=== PATIENT | female | born 1950 | race Caucasian/White ===

== ENCOUNTER 2019-06-15 12:40 | Outpatient (CLI) | payer OTHER, SELFPAY ==
[2019-06-15 13:58] LABS: Basophils # 0.1 10^3/uL (0.0-0.1); Basophils % 1.1 %; Eosinophils # 0.1 10^3/uL (0.0-0.8); Eosinophils % 1.1 %; Hematocrit 47.1 % (37.0-47.0); Hemoglobin 15.5 g/dL (11.5-15.3); Lymphocytes # 1.4 10^3/uL (0.8-4.8); Lymphocytes % 23.9 %; Mean Corpuscular HGB Conc 32.9 g/dL (30.0-36.0); Mean Corpuscular Hemoglobin 32.2 pg (28.0-34.0); Mean Corpuscular Volume 97.9 fL (81-99); Mean Platelet Volume 9.1 fL (7.4-10.4); Monocytes # 0.6 10^3/uL (0.2-0.9); Monocytes % 11.3 %; Neutrophils # 3.5 10^3/uL (1.8-7.7); Neutrophils % 62.4 %; Nucleated Red Blood Cells % 0 %; Platelet Count 336 10^3/cmm (130-400); Red Blood Count 4.81 10^6/uL (4.1-5.3); Red Cell Distribution Width 13.8 % (12.1-15.1); White Blood Count 5.7 10^3/uL (4.0-10.0)
[2019-06-15 14:08] LABS: Alanine Aminotransferase 36 U/L (0-33); Albumin Level 4.4 g/dL (3.5-5.2); Alkaline Phosphatase 72 IU/L (35-105); Anion Gap 15.8 (5-19); Aspartate Amino Transferase 29 U/L (0-32); Blood Urea Nitrogen 16 mg/dL (8-23); Calcium 10.8 mg/Dl (8.8-10.2); Carbon Dioxide 27 mmol/L (22-29); Chloride 100 mmol/L (98-107); Globulin 3.4 g/dL (1.3-4.6); Glomerular Filtration Rate 71.8 mL/min (90-130); Glucose 118 mg/dL (74-106); Potassium 3.8 mmol/L (3.5-5.1); Sodium 139 mmol/L (136-145); Total Bilirubin 0.4 mg/dL (0.15-1.2); Total Protein 7.8 g/dL (6.6-8.7)
== END 2019-06-15 12:41 | disposition home or self-care (01) ==
PROVIDERS: PCP Family Medicine; Visit Provider Internal Medicine Hematology & Oncology
DX: C50.311 Malignant neoplasm of lower-inner quadrant of right female breast (principal)
CPT/HCPCS: 80053; 85025

== ENCOUNTER 2019-06-19 14:34 | Outpatient (CLI) | payer OTHER, SELFPAY ==
--- NOTE | 2019-06-20 15:49 | ONC FU_ITS ---
Dr. Garza follow up note Patient: Petty Ramon Unit #: [id number]: 1950 Dicatated By: Rony Garza M.D.Date of Visit:Jun 19, 2019 Onc Med Follow-up/Prog Note History of Present Illness: Mrs. Petty Ramon is a 68-year-old female who recently underwent screening mammogram on 06/28/2018 which showed nodular density in the posterior medial inferior right breast about 11 cm from nipple. Confirmed by right breast ultrasonogram done on 07/06/2018. Subsequently underwent ultrasound-guided biopsy of right breast mass on 07/15/2018 which confirmed infiltrating carcinoma grade 2 ER/ID positive HER-2/abel negative. Patient was referred to surgery who performed wide excision of right breast with sentinel lymph node biopsy on 08/01/2018 and final pathology report showed 0.9 cm invasive carcinoma 0 out of 12 lymph nodes positive for metastatic disease. Patient tolerated procedure well Oncotype DX score was 8 which is low and distant recurrence of this 9 years with aromatase inhibitor is 3% She started on Arimidex 1 mg by mouth daily for 5 years on 08/16/2018. s/p postlumpectomy radiation therapy Completed on 09/28/2018. . She called in after having problems with the anastrozole. She had persistent queasiness, shortness of breath, fatigue and joint pain. She was having hot flashes intermittently as well but states that those are really not new and not unbearable. She did stop the anastrozole and states that she feels much better off of it.She was given prescription for Aromasin which she took it for a few days and then stopped taking it and then switched back to Arimidex and now tolerating well with mild nausea and generalized weakness and fatigue but no shortness of breath but occasional hot flashes Came for follow-up denies any specific complaintsno vomiting no fever or chills no diarrhea constipation but occasionally hot flashes and mild nausea but under control with supportive care. Tolerating Arimidex well now Medications: Citracal Plus Tablet Oral daily, Losartan Potassium-HCTZ 1 Tablet (of 50-12.5 mg) Oral daily Allergies: Latex Exam Gloves Review of Systems: Constitutional - Appetite is good and weight is stable. No fever, chills, or night sweats. Occasional hot flashes. Energy level is fair, ENMT - No sinus congestion/drainage. No mouth sores. No sore throat or difficulty swallowing, Hematologic/Lymphatic - No abnormal bruising or bleeding, Respiratory - No shortness of breath. No cough. No pleuritic pain or hemoptysis, Cardiovascular - No angina pain. No palpitations, Gastrointestinal - Positive for nausea, no vomiting. No heartburn or acid reflux. No diarrhea or constipation. No blood in the stool or black stools, Genitourinary (F) - No dysuria or hematuria. No urinary frequency. No urgency or incontinence, Musculoskeletal - Positive for generalized joint pain, Neurologic - No headache or dizziness. No numbness/paresthesias or other focal neurologic symptoms, Psychiatric - No anxiety or depression. Positive for insomnia. Vital Signs: Performed on Jun 19, 2019 15:20 Height - 56.00 in Weight - 250 lbs (LOW) BSA - 1.95 sq.m BMI - 56.05 (HIGH) Temperature - 98.2 F (LOW) Pulse - 73 /min Respiration - 20 /min BP - 153/85 mm(hg) (HIGH) O2 Sat - 98 % Pain - 3 Performance Status: 1 - No physically strenuous activity, but ambulatory and able to carry out light or sedentary work (e.g. office work, light house work). (ECOG) Physical Examination: Respiratory - Lungs are clear to auscultation without rhonchi or wheezing, Cardiovascular - Regular rate and rhythm of heart, Extremities - no edema. Lab/Imaging: Test performed on Jun 15, 2019 13:00 Glucose 118 mg/dL BUN 16 mg/dL Creatinine 0.8 mg/dL Cr Clearance (Est) 123.8300 mL/min Sodium 139 mmol/L Potassium 3.8 mmol/L Chloride 100 mmol/L CO2 27 mmol/L Calcium 10.8 mg/dL Protein, Total 7.8 g/dL Albumin 4.4 g/dL Globulin 3.4 g/dL Bilirubin, Total 0.4 mg/dL Alkaline Phosphatase 72 IU/L AST (SGOT) 29 IU/L ALT (SGPT) 36 IU/L WBC 5.7 10^9/L RBC 4.81 10^12/L HGB 15.5 g/dL HCT 47.1 % MCV 97.9 fl MCH 32.2 pg MCHC 32.9 g/dL RDW 13.8 % Platelet Count 336 10^9/L MPV 9.1 fL Neutrophils (Gran) 3.5 10^9/L Lymphocytes 1.4 10^9/L Monocytes 0.6 10^9/L Eosinophils 0.1 10^9/L Basophils 0.1 10^9/L Neutrophil % 1.1 % Manual Lymphocytes 23.9 % Manual Monocytes 11.3 % Manual Eosinophils 1.1 % Manual Basophils 1.1 % NRBCs 0.0 /100 WBC Test performed on May 22, 2019 08:00 Cholesterol, Total 177 mg/dL HDL Cholesterol 38 mg/dL LDL Cholesterol 117 mg/dL Triglycerides 111 mg/dL Impression: Infiltrating ductal carcinoma of right breast status post excisional biopsy with sentinel lymph node biopsy done on 08/01/2018 Final pathology report showed 0.9 cm and there was a mass p T1 0 out of 12 right axillary lymph node showed metastatic disease N0 Stage p1 a ER 90% positive, ID 50% positive, HER-2/abel negative Oncotype DX score checked on 08/26/2018 was 8 e.g. low risk, distant recurrence risk at 9 years with aromatase inhibitor is 3% Started on Arimidex 1 mg by mouth daily for 5 years on 08/16/2018. She developed intolerance to the Arimidex in that she was having queasiness, joint pain and significant fatigue. It was held on 12/06/2018. s/p postlumpectomy radiation therapy Completed on 09/28/2018 Plan: Discussed with patient regarding her labs white blood count 5.7 hemoglobin 15.5 crit 47.1 platelets 336,000 CMP within normal limits Clinically, patient is doing well, tolerating Arimidex well but with expected side effects e.g. degenerative weakness and fatigue, occasionally hot flashes or muscle skeleton discomfort. And mild nausea but patient was offered another hormonal agent but patient declined rather wants to continue with Arimidex. And return to clinic in 6 month with CBC CMP. Signed By: Rony Garza M.D. <<Signature on File>>
== END 2019-06-19 14:35 | disposition home or self-care (01) ==
LOC: ONCMED 14:38
PROVIDERS: PCP Family Medicine; Visit Provider Internal Medicine Hematology & Oncology
DX: C50.311 Malignant neoplasm of lower-inner quadrant of right female breast (principal); Z17.0 Estrogen receptor positive status [ER+]; Z79.811 Long term (current) use of aromatase inhibitors; Z92.3 Personal history of irradiation
CPT/HCPCS: 99214

== ENCOUNTER 2019-08-04 11:00 | Outpatient (CLI) | payer OTHER, SELFPAY ==
--- NOTE | 2019-08-04 11:03 | MM_ITS ---
WS: [id number] BILATERAL SCREENING DIGITAL MAMMOGRAM WITH CAD HISTORY: HX OF BREAST CA COMPARISON: 08/01/2018, 07/15/2018, 06/28/2018 Bilateral CC and MLO views submitted. Computer aided detection analyzed. Breast composition: There are scattered areas of fibroglandular density. No suspicious masses, microc alcifications or architectural distortion. Prior lumpectomy and radiation RIGHT breast. Very mild inc reased trabecular thickening over the RIGHT breast as compared to the prior studies. MM/[id number] IMPRESSION: BI-RADS: 2-Benign FOLLOW UP: 1 Year Follow-up
== END 2019-08-04 11:01 | disposition home or self-care (01) ==
LOC: ONCMED 11:00
PROVIDERS: PCP Family Medicine; Visit Provider Internal Medicine Hematology & Oncology
DX: Z85.3 Personal history of malignant neoplasm of breast (principal); Z92.3 Personal history of irradiation; Z98.890 Other specified postprocedural states
CPT/HCPCS: 77066

== ENCOUNTER 2019-12-14 13:21 | Outpatient (CLI) | payer OTHER, SELFPAY ==
[2019-12-14 14:44] LABS: Alanine Aminotransferase 34 U/L (0-33); Albumin Level 4.2 g/dL (3.5-5.2); Alkaline Phosphatase 60 IU/L (35-105); Anion Gap 15.9 (5-19); Aspartate Amino Transferase 28 U/L (0-32); Blood Urea Nitrogen 13 mg/dL (8-23); Calcium 10.5 mg/dL (8.5-10.5); Carbon Dioxide 28 mmol/L (22-29); Chloride 100 mmol/L (98-107); Globulin 3.5 g/dL (1.3-4.6); Glomerular Filtration Rate 71.5 mL/min (90-130); Glucose 95 mg/dL (65-115); Osmolality Calculated 286 mOsm/kg (285-295); Potassium 3.9 mmol/L (3.5-5.1); Sodium 140 mmol/L (136-145); Total Bilirubin 0.5 mg/dL (0.15-1.2); Total Protein 7.7 g/dL (6.6-8.7)
== END 2019-12-14 13:22 | disposition home or self-care (01) ==
LOC: ONCMED 13:24
PROVIDERS: PCP Family Medicine; Visit Provider Internal Medicine Hematology & Oncology
DX: C50.311 Malignant neoplasm of lower-inner quadrant of right female breast (principal); Z17.0 Estrogen receptor positive status [ER+]; I10 Essential (primary) hypertension
CPT/HCPCS: 36415; 80053

== ENCOUNTER 2019-12-18 14:40 | Outpatient (CLI) | payer OTHER, SELFPAY ==
--- NOTE | 2019-12-18 15:44 | ONC FU_ITS ---
Dr. Garza follow up note Patient: Petty Ramon Unit #: [id number]: 1950 Dicatated By: Rony Garza M.D.Date of Visit:Dec 18, 2019 Onc Med Follow-up/Prog Note History of Present Illness: Mrs. Petty Ramon is a 69-year-old female who underwent screening mammogram on 06/28/2018 which showed nodular density in the posterior medial inferior right breast about 11 cm from nipple. Confirmed by right breast ultrasonogram done on 07/06/2018. Subsequently underwent ultrasound-guided biopsy of right breast mass on 07/15/2018 which confirmed infiltrating carcinoma grade 2 ER/CO positive HER-2/abel negative. Patient was referred to surgery who performed wide excision of right breast with sentinel lymph node biopsy on 08/01/2018 and final pathology report showed 0.9 cm invasive carcinoma 0 out of 12 lymph nodes positive for metastatic disease. Patient tolerated procedure well Oncotype DX score was 8 which is low and distant recurrence of this 9 years with aromatase inhibitor is 3% She started on Arimidex 1 mg by mouth daily for 5 years on 08/16/2018. s/p postlumpectomy radiation therapy Completed on 09/28/2018. . She called in after having problems with the anastrozole. She had persistent queasiness, shortness of breath, fatigue and joint pain. She was having hot flashes intermittently as well but states that those are really not new and not unbearable. She did stop the anastrozole and states that she feels much better off of it.She was given prescription for Aromasin which she took it for a few days and then stopped taking it and then switched back to Arimidex and now tolerating well with mild nausea and generalized weakness and fatigue but no shortness of breath but occasional hot flashes Came for follow-up, complaining of persistent nausea and now with progressive arthritislike pain and muscle discomfort, patient has history of chronic arthritis involving hand joints and shoulders, now take ibuprofen for relief. Occasional hot flashes otherwise tolerating Arimidex/vitamin D/calcium well Medications: Arimidex 1 Tablet (of 1 mg) Oral daily, Citracal Plus Tablet Oral daily, Glucosamine 2 Tablet (of 750 mg) Oral daily, Losartan Potassium-HCTZ 1 Tablet (of 50-12.5 mg) Oral daily Allergies: Latex Exam Gloves Review of Systems: Constitutional - Appetite is good and weight is stable. No fever, chills, or night sweats. Occasional hot flashes. Energy level is fair, ENMT - No sinus congestion/drainage. No mouth sores. No sore throat or difficulty swallowing, Hematologic/Lymphatic - No abnormal bruising or bleeding, Respiratory - No shortness of breath. No cough. No pleuritic pain or hemoptysis, Cardiovascular - No angina pain. No palpitations, Gastrointestinal - Positive for nausea, no vomiting. No heartburn or acid reflux. No diarrhea or constipation. No blood in the stool or black stools, Genitourinary (F) - No dysuria or hematuria. No urinary frequency. No urgency or incontinence, Musculoskeletal - Positive for generalized joint pain, Neurologic - No headache or dizziness. No numbness/paresthesias or other focal neurologic symptoms, Psychiatric - No anxiety or depression. Positive for insomnia. Vital Signs: Performed on Dec 18, 2019 15:11 Height - 56.00 in Weight - 247.2 lbs (LOW) BSA - 1.94 sq.m BMI - 55.42 (HIGH) Temperature - 98.3 F (LOW) Pulse - 84 /min Respiration - 24 /min BP - 134/80 mm(hg) O2 Sat - 99 % Pain - 0 Performance Status: 0 - Fully active, able to carry on all predisease activities without restrictions. (ECOG) Physical Examination: Respiratory - Lungs are clear, Cardiovascular - Regular rate and rhythm of heart, Gastrointestinal - Soft, bowel sounds present, Extremities - No visible edema. Lab/Imaging: Most recent lab results are not available for this patient. Impression: Infiltrating ductal carcinoma of right breast status post excisional biopsy with sentinel lymph node biopsy done on 08/01/2018 Final pathology report showed 0.9 cm and there was a mass p T1 0 out of 12 right axillary lymph node showed metastatic disease N0 Stage p1 a ER 90% positive, CO 50% positive, HER-2/abel negative Oncotype DX score checked on 08/26/2018 was 8 e.g. low risk, distant recurrence risk at 9 years with aromatase inhibitor is 3% Started on Arimidex 1 mg by mouth daily for 5 years on 08/16/2018. She developed intolerance to the Arimidex in that she was having queasiness, joint pain and significant fatigue. It was held on 12/06/2018. s/p postlumpectomy radiation therapy Completed on 09/28/2018 Plan: discussed with patient regarding her labs CMP within normal limits Clinically no signs symptom suggestive of recurrence of disease, tolerating Arimidex/vitamin D/calcium well but now with expected side effects e.g. progressive musculoskeletal discomfort and nausea is a concern, at this point, patient was advised to hold Arimidex/vitamin D and calcium for 1 month to see if there is improvement in her symptoms especially nausea and progressive musculoskeletal/joint pains, if there is improvement then will consider switching her to Aromasin. Patient return to clinic in 1 month with CBC CMP Her previous CBC shows mildly elevated hemoglobin/hematocrit, could be secondary polycythemia, patient may have underlying sleep apnea but patient declines although wake up many times at night.Discussed about sleep study, to rule out sleep apnea, patient wants to think about it Signed By: Rony Garza M.D. <<Signature on File>>
== END 2019-12-18 14:41 | disposition home or self-care (01) ==
LOC: ONCMED 14:43
PROVIDERS: PCP Family Medicine; Visit Provider Internal Medicine Hematology & Oncology
DX: C50.911 Malignant neoplasm of unspecified site of right female breast (principal); Z17.0 Estrogen receptor positive status [ER+]; M19.042 Primary osteoarthritis, left hand; M19.041 Primary osteoarthritis, right hand; M19.012 Primary osteoarthritis, left shoulder; M19.011 Primary osteoarthritis, right shoulder; Z79.811 Long term (current) use of aromatase inhibitors; Z92.3 Personal history of irradiation
CPT/HCPCS: 99214

== ENCOUNTER 2020-01-18 13:02 | Outpatient (CLI) | payer MEDICARE, SELFPAY ==
[2020-01-18 13:33] LABS: Basophils # 0.1 10^3/uL (0.0-0.1); Basophils % 0.8 %; Eosinophils # 0.1 10^3/uL (0.0-0.8); Eosinophils % 2.2 %; Hematocrit 47.2 % (37.0-47.0); Hemoglobin 15.1 g/dL (11.5-15.3); Lymphocytes # 1.7 10^3/uL (0.8-4.8); Lymphocytes % 27.5 %; Mean Corpuscular Hemoglobin 32.3 pg (28.0-34.0); Mean Corpuscular Volume 101.1 fL (81-99); Mean Platelet Volume 9.3 fL (7.4-10.4); Monocytes # 0.7 10^3/uL (0.2-0.9); Monocytes % 11.9 %; Neutrophils # 3.47 10^3/uL (1.8-7.7); Neutrophils % 57.4 %; Nucleated Red Blood Cells % 0 %; Platelet Count 302 10^3/cmm (130-400); Red Blood Count 4.67 10^6/uL (4.1-5.3); Red Cell Distribution Width 13.7 % (12.1-15.1)
[2020-01-18 14:01] LABS: Alanine Aminotransferase 32 U/L (0-33); Albumin Level 3.9 g/dL (3.5-5.2); Alkaline Phosphatase 65 IU/L (35-105); Aspartate Amino Transferase 28 U/L (0-32); Blood Urea Nitrogen 16 mg/dL (8-23); Calcium 9.2 mg/dL (8.5-10.5); Carbon Dioxide 23 mmol/L (22-29); Chloride 104 mmol/L (98-107); Globulin 3.6 g/dL (1.3-4.6); Glomerular Filtration Rate 83.5 mL/min (90-130); Glucose 104 mg/dL (65-115); Osmolality Calculated 281 mOsm/kg (285-295); Sodium 137 mmol/L (136-145); Total Bilirubin 0.4 mg/dL (0.15-1.2); Total Protein 7.5 g/dL (6.6-8.7)
== END 2020-01-18 13:03 | disposition home or self-care (01) ==
LOC: ONCMED 13:04
PROVIDERS: PCP Family Medicine; Visit Provider Internal Medicine Hematology & Oncology
DX: C50.311 Malignant neoplasm of lower-inner quadrant of right female breast (principal); Z17.0 Estrogen receptor positive status [ER+]
CPT/HCPCS: 36415; 80053; 85025

== ENCOUNTER 2020-01-22 06:12 | Outpatient (CLI) | payer MEDICARE, SELFPAY ==
--- NOTE | 2020-01-23 17:55 | ONC FU_ITS ---
Dr. Garza follow up note Patient: Petty Ramon Unit #: [id number]: 1950 Dicatated By: Rony Garza M.D.Date of Visit:Jan 22, 2020 Onc Med Follow-up/Prog Note History of Present Illness: Mrs. Petty Ramon is a 69-year-old female who underwent screening mammogram on 06/28/2018 which showed nodular density in the posterior medial inferior right breast about 11 cm from nipple. Confirmed by right breast ultrasonogram done on 07/06/2018. Subsequently underwent ultrasound-guided biopsy of right breast mass on 07/15/2018 which confirmed infiltrating carcinoma grade 2 ER/ND positive HER-2/abel negative. Patient was referred to surgery who performed wide excision of right breast with sentinel lymph node biopsy on 08/01/2018 and final pathology report showed 0.9 cm invasive carcinoma 0 out of 12 lymph nodes positive for metastatic disease. Patient tolerated procedure well Oncotype DX score was 8 which is low and distant recurrence of this 9 years with aromatase inhibitor is 3% She started on Arimidex 1 mg by mouth daily for 5 years on 08/16/2018. s/p postlumpectomy radiation therapy Completed on 09/28/2018. . She called in after having problems with the anastrozole. She had persistent queasiness, shortness of breath, fatigue and joint pain. She was having hot flashes intermittently as well but states that those are really not new and not unbearable. She did stop the anastrozole and states that she feels much better off of it.She was given prescription for Aromasin which she took it for a few days and then stopped taking it and then switched back to Arimidex and now tolerating well with mild nausea and generalized weakness and fatigue but no shortness of breath but occasional hot flashes, Again because of progressive musculoskeletal discomfort and nausea, her Arimidex was put on hold for a month on December 18, 2019 for 1 month, Came for follow-up, denies any specific complaint except persistent musculoskeletal discomfort, not much improvement since she is off Arimidex since last month. But nausea has improved, think calcium was causing it, with stopping calcium supplement, her nausea improved. But no fever chills, no nausea or vomiting, no diarrhea or constipation. Patient wants to start Arimidex again.But without calcium supplement Medications: Citracal Plus Tablet Oral daily, Glucosamine 2 Tablet (of 750 mg) Oral daily, Losartan Potassium-HCTZ 1 Tablet (of 50-12.5 mg) Oral daily Allergies: Latex Exam Gloves Review of Systems: Constitutional - Appetite is good and weight is stable. No fever, chills, or night sweats. Occasional hot flashes. Energy level is fair, ENMT - No sinus congestion/drainage. No mouth sores. No sore throat or difficulty swallowing, Hematologic/Lymphatic - No abnormal bruising or bleeding, Respiratory - No shortness of breath. No cough. No pleuritic pain or hemoptysis, Cardiovascular - No angina pain. No palpitations, Gastrointestinal - Positive for nausea, no vomiting. No heartburn or acid reflux. No diarrhea or constipation. No blood in the stool or black stools, Genitourinary (F) - No dysuria or hematuria. No urinary frequency. No urgency or incontinence, Musculoskeletal - Positive for generalized joint pain, Neurologic - No headache or dizziness. No numbness/paresthesias or other focal neurologic symptoms, Psychiatric - No anxiety or depression. Positive for insomnia. Vital Signs: Performed on Jan 22, 2020 15:35 Height - 56.00 in Weight - 249.8 lbs (HIGH) BSA - 1.95 sq.m BMI - 56.00 (HIGH) Temperature - 98.8 F Pulse - 97 /min Respiration - 24 /min BP - 141/63 mm(hg) (HIGH) O2 Sat - 98 % Pain - 4 Performance Status: 0 - Fully active, able to carry on all predisease activities without restrictions. (ECOG) Physical Examination: Respiratory - Lungs are clear, Cardiovascular - Regular rate and rhythm of heart, Gastrointestinal - Soft, bowel sounds present, Extremities - No visible edema or rash. Lab/Imaging: Test performed on Dec 14, 2019 13:28 Sodium 140 mmol/L Potassium 3.9 mmol/L Chloride 100 mmol/L CO2 28 mmol/L Anion Gap 15.9 BUN 13 mg/dL Creatinine 0.8 mg/dL Cr Clearance (Est) 120.79 mL/min eGFR 71.5 mL/min Glucose 95 mg/dL Calcium 10.5 mg/dL Protein, Total 7.7 g/dL Albumin 4.2 g/dL Globulin 3.5 g/dL Bilirubin, Total 0.5 mg/dL ALT (SGPT) 34 U/L AST (SGOT) 28 U/L Alkaline Phosphatase 60 IU/L Impression: Infiltrating ductal carcinoma of right breast status post excisional biopsy with sentinel lymph node biopsy done on 08/01/2018 Final pathology report showed 0.9 cm and there was a mass p T1 0 out of 12 right axillary lymph node showed metastatic disease N0 Stage p1 a ER 90% positive, ND 50% positive, HER-2/abel negative Oncotype DX score checked on 08/26/2018 was 8 e.g. low risk, distant recurrence risk at 9 years with aromatase inhibitor is 3% Started on Arimidex 1 mg by mouth daily for 5 years on 08/16/2018. She developed intolerance to the Arimidex in that she was having queasiness, joint pain and significant fatigue. It was held on 12/06/2018. s/p postlumpectomy radiation therapy Completed on 09/28/2018 Plan: Discussed with patient regarding her labs white blood count 6 hemoglobin 15.1 crit 47.2 platelets 302,000 CMP within normal limits Clinically, patient is doing well, no signs symptom suggestive of recurrence of disease, still has persistent mild/moderate musculoskeletal discomfort which is a chronic problem for her, earlier she thought Arimidex was making it worse, she was switched to Aromasin and she did not see any improvement and decided to go back on Arimidex but then on December 18, 2019, she was complaining of worsening of musculoskeletal discomfort so Arimidex was put on hold again for month, now came back today and said did not see much improvement, wants to go back on Arimidex again as now her musculoskeletal discomfort is tolerable. But does not want a calcium supplement as, she thinks it was causing nausea. Patient will start taking the Arimidex today and return to clinic in 3 months for follow-up. And she was advised in case there is a worsening of her musculoskeletal symptoms, she need to call us and then we will discuss about trying another hormonal therapy agent. Signed By: Rony Garza M.D. <<Signature on File>>
== END 2020-01-22 06:13 | disposition home or self-care (01) ==
PROVIDERS: PCP Family Medicine; Visit Provider Internal Medicine Hematology & Oncology
DX: C50.311 Malignant neoplasm of lower-inner quadrant of right female breast (principal); Z17.0 Estrogen receptor positive status [ER+]; Z79.818 Long term (current) use of other agents affecting estrogen receptors and estrogen levels
CPT/HCPCS: 99214

== ENCOUNTER 2020-04-23 15:01 | Outpatient (CLI) | payer MEDICARE, SELFPAY ==
--- NOTE | 2020-05-10 09:45 | ONC FU_ITS ---
Dr. Garza follow up note Patient: Petty Ramon Unit #: [id number]: 1950 Dicatated By: Rony Garza M.D.Date of Visit:Apr 23, 2020 Onc Med Follow-up/Prog Note History of Present Illness: Mrs. Petty Ramon is a 69-year-old female who underwent screening mammogram on 06/28/2018 which showed nodular density in the posterior medial inferior right breast about 11 cm from nipple. Confirmed by right breast ultrasonogram done on 07/06/2018. Subsequently underwent ultrasound-guided biopsy of right breast mass on 07/15/2018 which confirmed infiltrating carcinoma grade 2 ER/MS positive HER-2/abel negative. Patient was referred to surgery who performed wide excision of right breast with sentinel lymph node biopsy on 08/01/2018 and final pathology report showed 0.9 cm invasive carcinoma 0 out of 12 lymph nodes positive for metastatic disease. Patient tolerated procedure well Oncotype DX score was 8 which is low and distant recurrence of this 9 years with aromatase inhibitor is 3% She started on Arimidex 1 mg by mouth daily for 5 years on 08/16/2018. s/p postlumpectomy radiation therapy Completed on 09/28/2018. . She called in after having problems with the anastrozole. She had persistent queasiness, shortness of breath, fatigue and joint pain. She was having hot flashes intermittently as well but states that those are really not new and not unbearable. She did stop the anastrozole and states that she feels much better off of it.She was given prescription for Aromasin which she took it for a few days and then stopped taking it and then switched back to Arimidex and now tolerating well with mild nausea and generalized weakness and fatigue but no shortness of breath but occasional hot flashes, Again because of progressive musculoskeletal discomfort and nausea, her Arimidex was put on hold for a month on December 18, 2019 for 1 month,And then restarted, and patient tolerated well Came for follow-up, denies any specific complaint except chronic musculoskeletal pain/discomfort, no fever chills, no nausea or vomiting but occasionally hot flashes otherwise tolerating Arimidex/vitamin D well Medications: Anastrozole 1 Tablet (of 1 mg) Oral daily, Citracal Plus Tablet Oral daily, Glucosamine 2 Tablet (of 750 mg) Oral daily, Losartan Potassium-HCTZ 1 Tablet (of 50-12.5 mg) Oral daily Allergies: Latex Exam Gloves Review of Systems: Constitutional - Appetite is good and weight is stable. No fever, chills, or night sweats. Occasional hot flashes. Energy level is fair, ENMT - No sinus congestion/drainage. No mouth sores. No sore throat or difficulty swallowing, Hematologic/Lymphatic - No abnormal bruising or bleeding, Respiratory - No shortness of breath. No cough. No pleuritic pain or hemoptysis, Cardiovascular - No angina pain. No palpitations, Gastrointestinal - Positive for nausea, no vomiting. No heartburn or acid reflux. No diarrhea or constipation. No blood in the stool or black stools, Genitourinary (F) - No dysuria or hematuria. No urinary frequency. No urgency or incontinence, Musculoskeletal - Positive for generalized joint pain, Neurologic - No headache or dizziness. No numbness/paresthesias or other focal neurologic symptoms, Psychiatric - No anxiety or depression. Positive for insomnia. Vital Signs: Performed on Apr 23, 2020 15:24 Height - 56.00 in Weight - 255.4 lbs (HIGH) BSA - 1.97 sq.m BMI - 57.26 (HIGH) Temperature - 98.2 F (LOW) Pulse - 77 /min Respiration - 24 /min BP - 142/78 mm(hg) (HIGH) O2 Sat - 99 % Pain - 0 Performance Status: 0 - Fully active, able to carry on all predisease activities without restrictions. (ECOG) Physical Examination: Respiratory - Lungs are clear to auscultation, Cardiovascular - Regular rate and rhythm of heart, Gastrointestinal - Soft, bowel sounds present, Extremities - No visible edema or rash. Lab/Imaging: Test performed on Jan 18, 2020 13:12 Sodium 137 mmol/L Potassium 4.0 mmol/L Chloride 104 mmol/L CO2 23 mmol/L Anion Gap 14.0 BUN 16 mg/dL Creatinine 0.7 mg/dL Cr Clearance (Est) 139.50 mL/min eGFR 83.5 mL/min Glucose 104 mg/dL Calcium 9.2 mg/dL Osmolality - Calculated 281 mOsm/kg Protein, Total 7.5 g/dL Albumin 3.9 g/dL Globulin 3.6 g/dL Bilirubin, Total 0.4 mg/dL ALT (SGPT) 32 U/L AST (SGOT) 28 U/L Alkaline Phosphatase 65 IU/L WBC 6.0 10 3/uL RBC 4.67 10 6/uL HGB 15.1 g/dL HCT 47.2 % MCV 101.1 fL MCH 32.3 pg MCHC 32.0 g/dL RDW 13.7 % Platelet Count 302 10 3/cmm MPV 9.3 fL Neutrophils 3.47 10 3/uL Lymphocytes 1.7 10 3/uL Monocytes 0.7 10 3/uL Eosinophils 0.1 10 3/uL Basophils 0.1 10 3/uL Neutrophil % 57.4 % Lymphocyte % 27.5 % Monocyte % 11.9 % Eosinophil % 2.2 % Basophils % 0.8 % NRBC % 0 % Impression: Infiltrating ductal carcinoma of right breast status post excisional biopsy with sentinel lymph node biopsy done on 08/01/2018 Final pathology report showed 0.9 cm and there was a mass p T1 0 out of 12 right axillary lymph node showed metastatic disease N0 Stage p1 a ER 90% positive, MS 50% positive, HER-2/abel negative Oncotype DX score checked on 08/26/2018 was 8 e.g. low risk, distant recurrence risk at 9 years with aromatase inhibitor is 3% Started on Arimidex 1 mg by mouth daily for 5 years on 08/16/2018. She developed intolerance to the Arimidex in that she was having queasiness, joint pain and significant fatigue. It was held on 12/06/2018 For 1 month, was restarted and patient is tolerating well s/p postlumpectomy radiation therapy Completed on 09/28/2018 Plan: Discussed with patient regarding her labs white blood count 6 hemoglobin 15.1 hematocrit 47.2 platelets 302,000 CMP within normal limits Clinically, patient doing well with no new signs symptom suggestive of recurrence of disease, tolerating Arimidex along with vitamin D well but with expected side effects. We will continue to monitor she will return to clinic in 6-month and will also schedule her for follow-up mammogram prior to her next visit. Signed By: Rony Garza M.D. <<Signature on File>>
== END 2020-04-23 15:02 | disposition home or self-care (01) ==
LOC: ONCMED 15:06
PROVIDERS: PCP Family Medicine; Visit Provider Internal Medicine Hematology & Oncology
DX: C50.311 Malignant neoplasm of lower-inner quadrant of right female breast (principal); Z17.0 Estrogen receptor positive status [ER+]; Z79.811 Long term (current) use of aromatase inhibitors; Z92.3 Personal history of irradiation
CPT/HCPCS: 99214

== ENCOUNTER → 2020-05-15 10:26 | Outpatient (BNVA) | payer MEDICARE, SELFPAY | PROVIDERS: PCP Family Medicine; Visit Provider Internal Medicine | DX: M25.50 Pain in unspecified joint (principal); Z79.899 Other long term (current) drug therapy; Z11.59 Encounter for screening for other viral diseases; I10 Essential (primary) hypertension; Z85.3 Personal history of malignant neoplasm of breast | CPT/HCPCS: 36415; 80053; 82310; 82728; 82784; 83516; 83540; 83735; 83970; 84100; 84550; 85025; 85651; 86431; 86704; 86803; 86812; 87340; 99204 ==

== ENCOUNTER 2020-05-16 10:31 | Outpatient (CLI) | payer MEDICARE, SELFPAY ==
--- NOTE | 2020-05-16 10:45 | XR_ITS ---
WS: [id number] TECHNIQUE: 2 views of the right hand CLINICAL INFORMATION: M25.50 - Pain in unspecified joint COMPARISON: None. FINDINGS: Normal metacarpals. Normal MCP joint. Metacarpal heads are normal in appearance. Moderate degenerativ e narrowing PIP and DIP joints with periarticular osteophytes. No evidence of acute fracture or dislo cation. 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 Moderate degenerative narrowing involving the PIP and DIP joints with peria rticular osteophytes. 2. Mild narrowing of the radiocarpal joint.
--- NOTE | 2020-05-16 10:45 | XR_ITS ---
WS: [id number] KNEE RIGHT TECHNIQUE: 2 views of the right knee CLINICAL INFORMATION: M25.50 - Pain in unspecified joint COMPARISON: None. FINDINGS: Normal anatomic alignment. Moderate degenerative narrowing medial joint compartment. Hypertrophic reji nges along the joint line. Since moderate narrowing at the patellofemoral articulation. Soft tissue e lloyd. Small suprapatellar effusion. Hypertrophic patella. XR/XR knee RT 1-2V [id number] IMPRESSION: Moderate degenerative narrowing medial joint compartment and patell ofemoral articulation.
--- NOTE | 2020-05-16 10:45 | XR_ITS ---
WS: [id number] FOOT LEFT TECHNIQUE: 2 views of the left foot CLINICAL INFORMATION: M25.50 - Pain in unspecified joint COMPARISON: None. FINDINGS: Osteopenia. Vascular calcification. Hammertoe deformities. Moderate narrowing at the PIP and DIP join ts. Mild soft tissue edema. Plantar calcaneal spurring. XR/XR foot LT 2V [id number] IMPRESSION: Moderate narrowing at the PIP and DIP joints.
--- NOTE | 2020-05-16 10:45 | XR_ITS ---
WS: [id number] TECHNIQUE: 2 views of the left hand CLINICAL INFORMATION: M25.50 - Pain in unspecified joint COMPARISON: None. FINDINGS: Normal metacarpals. Normal MCP joint. Metacarpal heads are normal in appearance. Moderates narrowing at the PIP and DIP joints worse involving the second third and fourth digits. Periarticular osteophyt es. PIP and DIP joints. No evidence of acute fracture or dislocation. Radiocarpal joint: Mild narrowing Carpal bones: Normal. XR/XR hand LT 2V [id number] IMPRESSION: Moderate narrowing at the PIP and DIP joints worse involving the second third a nd fourth digits. Periarticular osteophytes.
--- NOTE | 2020-05-16 10:45 | XR_ITS ---
WS: [id number] FOOT RIGHT TECHNIQUE: 2 views of the right foot CLINICAL INFORMATION: M25.50 - Pain in unspecified joint COMPARISON: None. FINDINGS: Osteopenia. Mild soft tissue edema. Hammertoe deformities. Moderate narrowing involving the PIP and D IP joints worse at the third fourth and fifth digits. No significant erosive changes. XR/XR foot RT 2V [id number] IMPRESSION: Moderate narrowing involving the PIP and DIP joints worse at the third fourth a nd fifth digits. No significant erosive changes.
--- NOTE | 2020-05-16 10:45 | XR_ITS ---
WS: [id number] KNEE LEFT TECHNIQUE: 2 views of the left knee CLINICAL INFORMATION: M25.50 - Pain in unspecified joint COMPARISON: None. FINDINGS: Moderate degenerative narrowing medial joint compartment. Hypertrophic changes along the viki int line. Lateral compartment is better preserved. Moderate degenerative narrowing at the patellofemo ral articulation. Hypertrophic patella. Soft tissue edema. XR/XR knee LT 1-2V [id number] IMPRESSION: Moderate degenerative narrowing medial joint compartment and patellofemoral art iculation.
== END 2020-05-16 10:32 | disposition home or self-care (01) ==
LOC: RADWPI 10:36
PROVIDERS: PCP Family Medicine; Visit Provider Internal Medicine
DX: M79.671 Pain in right foot (principal); M79.672 Pain in left foot; M79.642 Pain in left hand; M79.641 Pain in right hand; M25.562 Pain in left knee; M25.561 Pain in right knee; M25.742 Osteophyte, left hand; M25.741 Osteophyte, right hand
CPT/HCPCS: 73120; 73560; 73620

== ENCOUNTER → 2020-06-06 08:20 | Outpatient (BNVA) | payer MEDICARE, SELFPAY | PROVIDERS: PCP Family Medicine; Visit Provider Internal Medicine | DX: M25.50 Pain in unspecified joint (principal); R70.0 Elevated erythrocyte sedimentation rate; R79.89 Other specified abnormal findings of blood chemistry; C50.919 Malignant neoplasm of unspecified site of unspecified female breast | CPT/HCPCS: 99214 ==

== ENCOUNTER 2020-08-05 11:02 | Outpatient (CLI) | payer MEDICARE, SELFPAY ==
--- NOTE | 2020-08-05 11:11 | MM_ITS ---
WS: [id number] BILATERAL DIGITAL SCREENING MAMMOGRAPHY WITH CAD CLINICAL INFORMATION: HX OF BREAST CA HISTORY: Diagnostic mammogram. Right breast soreness COMPARISON: July 27, 2019 TECHNIQUE: Bilateral CC and MLO views. FINDINGS: The breasts are composed of heterogeneous fibroglandular density tissue, which can limit the detectio n of small underlying mass lesions. Prior lumpectomy and radiation changes right breast. Trabecular t hickening right breast is unchanged. No suspicious mass, asymmetry, calcifications, or architectural distortion. No evidence of malignancy. Punctate and vascular calcifications. MM/[place] [id number] IMPRESSION: BI-RADS: 2-Benign FOLLOW UP: 1 Year Follow-up Recommend return to annual diagnostic mammography.
== END 2020-08-05 11:03 | disposition home or self-care (01) ==
LOC: RADSHAW 11:05
PROVIDERS: PCP Family Medicine; Visit Provider Internal Medicine Hematology & Oncology
DX: M25.50 Pain in unspecified joint (principal); R70.0 Elevated erythrocyte sedimentation rate; I10 Essential (primary) hypertension; C50.311 Malignant neoplasm of lower-inner quadrant of right female breast
CPT/HCPCS: 77066; 99213; 99214

== ENCOUNTER 2020-09-04 08:57 | Outpatient (CLI) | payer MEDICARE, SELFPAY ==
[2020-09-04 10:10] LABS: Basophils # 0.1 10^3/uL (0.0-0.1); Basophils % 1.4 %; Eosinophils # 0.1 10^3/uL (0.0-0.8); Hematocrit 46.4 % (37.0-47.0); Hemoglobin 15.4 g/dL (11.5-15.3); Lymphocytes # 0.8 10^3/uL (0.8-4.8); Lymphocytes % 15.6 %; Mean Corpuscular HGB Conc 33.2 g/dL (30.0-36.0); Mean Corpuscular Hemoglobin 32.4 pg (28.0-34.0); Mean Corpuscular Volume 97.5 fL (81-99); Mean Platelet Volume 9.4 fL (7.4-10.4); Monocytes # 0.5 10^3/uL (0.2-0.9); Monocytes % 10.2 %; Neutrophils # 3.53 10^3/uL (1.8-7.7); Neutrophils % 70.6 %; Nucleated Red Blood Cells % 0 %; Platelet Count 291 10^3/cmm (130-400); Red Blood Count 4.76 10^6/uL (4.1-5.3); Red Cell Distribution Width 13.4 % (12.1-15.1)
[2020-09-04 10:23] LABS: Alanine Aminotransferase 29 U/L (0-33); Albumin Level 4.2 g/dL (3.5-5.2); Alkaline Phosphatase 63 IU/L (35-105); Aspartate Amino Transferase 29 U/L (0-32); Blood Urea Nitrogen 13 mg/dL (8-23); Calcium 9.8 mg/dL (8.5-10.5); Carbon Dioxide 23 mmol/L (22-29); Chloride 104 mmol/L (98-107); Globulin 3.3 g/dL (1.3-4.6); Glomerular Filtration Rate 83.2 mL/min (90-130); Glucose 123 mg/dL (65-115); Osmolality Calculated 289 mOsm/kg (285-295); Sodium 139 mmol/L (136-145); Total Bilirubin 0.7 mg/dL (0.15-1.2); Total Protein 7.5 g/dL (6.6-8.7)
--- NOTE | 2020-09-04 17:02 | ONC FU_ITS ---
Dr. Garza follow up note Patient: Petty Ramon Unit #: [id number]: 1950 Dicatated By: Rony Garza M.D.Date of Visit:Sep 04, 2020 Onc Med Follow-up/Prog Note History of Present Illness: Mrs. Petty Ramon is a 70 -year-old female who underwent screening mammogram on 06/28/2018 which showed nodular density in the posterior medial inferior right breast about 11 cm from nipple. Confirmed by right breast ultrasonogram done on 07/06/2018. Subsequently underwent ultrasound-guided biopsy of right breast mass on 07/15/2018 which confirmed infiltrating carcinoma grade 2 ER/ND positive HER-2/abel negative. Patient was referred to surgery who performed wide excision of right breast with sentinel lymph node biopsy on 08/01/2018 and final pathology report showed 0.9 cm invasive carcinoma 0 out of 12 lymph nodes positive for metastatic disease. Patient tolerated procedure well Oncotype DX score was 8 which is low and distant recurrence of this 9 years with aromatase inhibitor is 3% She started on Arimidex 1 mg by mouth daily for 5 years on 08/16/2018. s/p postlumpectomy radiation therapy Completed on 09/28/2018. . She called in after having problems with the anastrozole. She had persistent queasiness, shortness of breath, fatigue and joint pain. She was having hot flashes intermittently as well but states that those are really not new and not unbearable. She did stop the anastrozole and states that she feels much better off of it.She was given prescription for Aromasin which she took it for a few days and then stopped taking it and then switched back to Arimidex and now tolerating well with mild nausea and generalized weakness and fatigue but no shortness of breath but occasional hot flashes, Again because of progressive musculoskeletal discomfort and nausea, her Arimidex was put on hold for a month on December 18, 2019 for 1 month,And then restarted, and patient tolerated well Came for follow-up, denies any specific complaint except chronic musculoskeletal pain/discomfort, no fever chills, no nausea or vomiting, No diarrhea or constipation, no new bony pains but occasionally hot flashes otherwise tolerating Arimidex/vitamin D well Medications: Anastrozole 1 Tablet (of 1 mg) Oral daily, Citracal Plus Tablet Oral daily, Glucosamine 2 Tablet (of 750 mg) Oral daily, Losartan Potassium-HCTZ 1 Tablet (of 50-12.5 mg) Oral daily Allergies: Latex Exam Gloves Review of Systems: Review of Systems is not available for this patient. Vital Signs: Performed on Sep 04, 2020 11:00 Height - 56.00 in Weight - 244.8 lbs (LOW) BSA - 1.93 sq.m BMI - 54.88 (HIGH) Temperature - 97.7 F (LOW) Pulse - 78 /min Respiration - 18 /min BP - 125/80 mm(hg) O2 Sat - 97 % Pain - 0 Fatigue - 8 Performance Status: 0 - Fully active, able to carry on all predisease activities without restrictions. (ECOG) Physical Examination: Respiratory - Lungs are clear to auscultation, Cardiovascular - Regular rate and rhythm of heart, Gastrointestinal - Soft, bowel sounds present, Extremities - No visible edema or rash. Lab/Imaging: Most recent lab results are not available for this patient. Impression: Infiltrating ductal carcinoma of right breast status post excisional biopsy with sentinel lymph node biopsy done on 08/01/2018 Final pathology report showed 0.9 cm and there was a mass p T1 0 out of 12 right axillary lymph node showed metastatic disease N0 Stage p1 a ER 90% positive, ND 50% positive, HER-2/abel negative Oncotype DX score checked on 08/26/2018 was 8 e.g. low risk, distant recurrence risk at 9 years with aromatase inhibitor is 3% Started on Arimidex 1 mg by mouth daily for 5 years on 08/16/2018. She developed intolerance to the Arimidex in that she was having queasiness, joint pain and significant fatigue. It was held on 12/06/2018 For 1 month, was restarted and patient is tolerating well s/p postlumpectomy radiation therapy Completed on 09/28/2018 Follow-up mammogram done on August 05, 2020 showed no abnormality Plan: Discussed with patient regarding her labs white blood count 5 hemoglobin 15.4 hematocrit 46.4 platelets 291,000 CMP within normal limits, Follow-up mammogram done on August 05, 2020 shows BI-RADS 2 benign Clinically, patient doing well with no new signs symptom suggestive of recurrence of disease,, Her follow-up mammogram shows no abnormality, tolerating Arimidex along with vitamin D well but with expected side effects. We will continue to monitor she will return to clinic in 6-month Signed By: Rony Garza M.D. <<Signature on File>>
== END 2020-09-04 08:58 | disposition home or self-care (01) ==
LOC: ONCMED 08:58
PROVIDERS: PCP Family Medicine; Visit Provider Internal Medicine Hematology & Oncology
DX: C50.311 Malignant neoplasm of lower-inner quadrant of right female breast (principal); Z17.0 Estrogen receptor positive status [ER+]; Z79.811 Long term (current) use of aromatase inhibitors
CPT/HCPCS: 36415; 80053; 85025; 99214

== ENCOUNTER 2020-12-20 12:00 | Outpatient (CLI) | payer MEDICARE, SELFPAY ==
[2020-12-20 12:46] LABS: Basophils # 0.1 10^3/uL (0.0-0.1); Basophils % 0.7 %; Eosinophils % 0.4 %; Hematocrit 45.2 % (37.0-47.0); Hemoglobin 14.9 g/dL (11.5-15.3); Lymphocytes # 1.3 10^3/uL (0.8-4.8); Mean Corpuscular Hemoglobin 32.8 pg (28.0-34.0); Mean Corpuscular Volume 99.6 fL (81-99); Mean Platelet Volume 9.1 fL (7.4-10.4); Monocytes # 0.6 10^3/uL (0.2-0.9); Neutrophils # 5.12 10^3/uL (1.8-7.7); Neutrophils % 71.6 %; Nucleated Red Blood Cells % 0 %; Platelet Count 320 10^3/cmm (130-400); Red Blood Count 4.54 10^6/uL (4.1-5.3); Red Cell Distribution Width 13.1 % (12.1-15.1); White Blood Count 7.2 10^3/uL (4.0-10.0)
[2020-12-20 12:58] LABS: Alanine Aminotransferase 27 U/L (0-33); Albumin Level 4.1 g/dL (3.5-5.2); Alkaline Phosphatase 68 IU/L (35-105); Anion Gap 14.8 (5-19); Aspartate Amino Transferase 25 U/L (0-32); Blood Urea Nitrogen 16 mg/dL (8-23); C Reactive Protein 4.4 mg/L (0.0-4.9); Calcium 9.5 mg/dL (8.5-10.5); Carbon Dioxide 25 mmol/L (22-29); Chloride 102 mmol/L (98-107); Globulin 3.1 g/dL (1.3-4.6); Glomerular Filtration Rate 83.2 mL/min (90-130); Glucose 101 mg/dL (65-115); Osmolality Calculated 287 mOsm/kg (285-295); Potassium 3.8 mmol/L (3.5-5.1); Sodium 138 mmol/L (136-145); Total Bilirubin 0.5 mg/dL (0.15-1.2); Total Protein 7.2 g/dL (6.6-8.7)
[2020-12-20 13:37] LABS: Erythrocyte Sedimentation Rate 28 mm/hr (0-15)
[2020-12-24 18:43] LABS: Tissue Transglutaminase IgA Ab 3 U/mL; Tissue transglutaminase Ab.IgG 1 U/mL
[2020-12-27 00:33] LABS: Immunoglobulin A 501 mg/dL (70-320)
[2020-12-28 22:33] LABS: Gliadin Ab.IgA 6 U (<20); Gliadin Ab.IgG <1 U (<20)
== END 2020-12-20 12:01 | disposition home or self-care (01) ==
PROVIDERS: PCP Family Medicine; Visit Provider Internal Medicine
DX: R70.0 Elevated erythrocyte sedimentation rate (principal); M25.50 Pain in unspecified joint; C50.919 Malignant neoplasm of unspecified site of unspecified female breast; R79.89 Other specified abnormal findings of blood chemistry; Z79.899 Other long term (current) drug therapy
CPT/HCPCS: 36415; 80053; 82784; 83516; 85025; 85651; 86140

== ENCOUNTER → 2020-12-24 09:34 | Outpatient (BNVA) | payer MEDICARE, SELFPAY | PROVIDERS: PCP Family Medicine; Visit Provider Internal Medicine | DX: Z85.3 Personal history of malignant neoplasm of breast (principal); Z92.3 Personal history of irradiation; M25.50 Pain in unspecified joint; M17.10 Unilateral primary osteoarthritis, unspecified knee; R70.0 Elevated erythrocyte sedimentation rate; Z79.899 Other long term (current) drug therapy | CPT/HCPCS: 99214 ==

== ENCOUNTER 2021-04-11 09:03 | Outpatient (CLI) | payer MEDICARE, SELFPAY ==
[2021-04-11 09:51] LABS: Basophils # 0.1 10^3/uL (0.0-0.1); Basophils % 0.9 %; Eosinophils # 0.1 10^3/uL (0.0-0.8); Eosinophils % 1.6 %; Hematocrit 43.7 % (37.0-47.0); Hemoglobin 14.7 g/dL (11.5-15.3); Lymphocytes # 1.3 10^3/uL (0.8-4.8); Lymphocytes % 23.3 %; Mean Corpuscular HGB Conc 33.6 g/dL (30.0-36.0); Mean Corpuscular Hemoglobin 32.5 pg (28.0-34.0); Mean Corpuscular Volume 96.5 fl (81-99); Mean Platelet Volume 9.3 fL (7.4-10.4); Monocytes # 0.6 10^3/uL (0.2-0.9); Monocytes % 10.5 %; Neutrophils # 3.48 10^3/uL (1.8-7.7); Neutrophils % 63.3 %; Nucleated Red Blood Cells % 0 %; Platelet Count 301 10^3/cmm (130-400); Red Blood Count 4.53 10^6/uL (4.1-5.3); White Blood Count 5.5 10^3/uL (4.0-10.0)
[2021-04-11 10:14] LABS: Alanine Aminotransferase 19 U/L (0-33); Alkaline Phosphatase 64 IU/L (35-105); Anion Gap 16.2 (5-19); Aspartate Amino Transferase 16 U/L (0-32); Blood Urea Nitrogen 12 mg/dL (8-23); Calcium 9.6 mg/dL (8.5-10.5); Carbon Dioxide 25 mmol/L (22-29); Chloride 104 mmol/L (98-107); Glomerular Filtration Rate 122.7 mL/min (90-130); Glucose 97 mg/dL (65-115); Osmolality Calculated 292 mOsm/kg (285-295); Potassium 4.2 mmol/L (3.5-5.1); Sodium 141 mmol/L (136-145); Total Bilirubin 0.4 mg/dL (0.15-1.2)
== END 2021-04-11 09:04 | disposition home or self-care (01) ==
LOC: ONCMED 09:05
PROVIDERS: Nurse Practitioner; PCP Family Medicine; Visit Provider Internal Medicine Hematology & Oncology
DX: C50.311 Malignant neoplasm of lower-inner quadrant of right female breast (principal); Z17.0 Estrogen receptor positive status [ER+]
CPT/HCPCS: 36415; 80053; 85025

== ENCOUNTER 2021-05-20 13:07 | Outpatient (CLI) | payer MEDICARE, SELFPAY ==
--- NOTE | 2021-05-20 14:10 | ONC FU_ITS ---
Dr. Garza follow up note Patient: Petty Ramon Unit #: [id number]: 1950 Dicatated By: Rony Garza M.D.Date of Visit:May 20, 2021 Onc Med Follow-up/Prog Note History of Present Illness: Mrs. Petty Ramon is a 70 -year-old female who underwent screening mammogram on 06/28/2018 which showed nodular density in the posterior medial inferior right breast about 11 cm from nipple. Confirmed by right breast ultrasonogram done on 07/06/2018. Subsequently underwent ultrasound-guided biopsy of right breast mass on 07/15/2018 which confirmed infiltrating carcinoma grade 2 ER/MA positive HER-2/abel negative. Patient was referred to surgery who performed wide excision of right breast with sentinel lymph node biopsy on 08/01/2018 and final pathology report showed 0.9 cm invasive carcinoma 0 out of 12 lymph nodes positive for metastatic disease. Patient tolerated procedure well Oncotype DX score was 8 which is low and distant recurrence of this 9 years with aromatase inhibitor is 3% She started on Arimidex 1 mg by mouth daily for 5 years on 08/16/2018. s/p postlumpectomy radiation therapy Completed on 09/28/2018. . She called in after having problems with the anastrozole. She had persistent queasiness, shortness of breath, fatigue and joint pain. She was having hot flashes intermittently as well but states that those are really not new and not unbearable. She did stop the anastrozole and states that she feels much better off of it.She was given prescription for Aromasin which she took it for a few days and then stopped taking it and then switched back to Arimidex and now tolerating well with mild nausea and generalized weakness and fatigue but no shortness of breath but occasional hot flashes, Again because of progressive musculoskeletal discomfort and nausea, her Arimidex was put on hold for a month on December 18, 2019 for 1 month,And then restarted, and patient tolerated well came for follow-up, denies any specific complaint except mild musculoskeletal discomfort/pain which is under control with the tramadol prescribed by her PMD. No new bony pains, no nausea or vomiting, no diarrhea or constipation,, no headaches, tolerating Arimidex/vitamin D/calcium well Medications: Anastrozole 1 Tablet (of 1 mg) Oral daily, Citracal Plus Tablet Oral daily, Glucosamine 2 Tablet (of 750 mg) Oral daily, Losartan Potassium-HCTZ 1 Tablet (of 50-12.5 mg) Oral daily Allergies: Latex Exam Gloves Review of Systems: Review of Systems is not available for this patient. Vital Signs: Vitals are not available for this patient. Performance Status: 0 - Fully active, able to carry on all predisease activities without restrictions. (ECOG) Physical Examination: Respiratory - Lungs are clear to auscultation, Cardiovascular - Regular rate and rhythm of heart, Gastrointestinal - Soft, bowel sounds present, Extremities - No visible edema. Lab/Imaging: Most recent lab results are not available for this patient. Impression: Infiltrating ductal carcinoma of right breast status post excisional biopsy with sentinel lymph node biopsy done on 08/01/2018 Final pathology report showed 0.9 cm and there was a mass p T1 0 out of 12 right axillary lymph node showed metastatic disease N0 Stage p1 a ER 90% positive, MA 50% positive, HER-2/abel negative Oncotype DX score checked on 08/26/2018 was 8 e.g. low risk, distant recurrence risk at 9 years with aromatase inhibitor is 3% Started on Arimidex 1 mg by mouth daily for 5 years on 08/16/2018. She developed intolerance to the Arimidex in that she was having queasiness, joint pain and significant fatigue. It was held on 12/06/2018 For 1 month, was restarted and patient is tolerating well s/p postlumpectomy radiation therapy Completed on 09/28/2018 Follow-up mammogram done on August 05, 2020 showed no abnormality Plan: Discussed with patient regarding her labs from April 11, 2021 showed white blood count 5.5 hemoglobin 14.7 hematocrit 43.7 platelets 301,000 CMP within normal limits Clinically, patient doing well with no new signs symptom suggestive of recurrence of disease, tolerating Arimidex/vitamin D/calcium well but with expected side effect. We will continue with same and she will return to clinic in 6 months with follow-up mammogram Signed By: Rony Garza M.D. <<Signature on File>>
== END 2021-05-20 13:08 | disposition home or self-care (01) ==
LOC: ONCMED 13:09
PROVIDERS: PCP Family Medicine; Visit Provider Internal Medicine Hematology & Oncology
DX: C50.911 Malignant neoplasm of unspecified site of right female breast (principal); Z17.0 Estrogen receptor positive status [ER+]
CPT/HCPCS: 99214

== ENCOUNTER 2021-08-27 08:55 | Outpatient (CLI) | payer MEDICARE, SELFPAY ==
--- NOTE | 2021-08-27 09:03 | MM_ITS ---
WS: [id number] BILATERAL 3D TOMOSYNTHESIS DIGITAL MAMMOGRAPHY WITH CAD CLINICAL INFORMATION: HX OF BREAST CA COMPARISON: August 05, 2020 TECHNIQUE: 5 views of bilateral breast were obtained. FINDINGS: Scattered fibroglandular densities of the right breast. Vascular calcification. Lucent centered calci fications RIGHT breast. Spiculated nodule upper outer RIGHT breast posterior depth measuring 4 mm aida ears new since August 05, 2020. Recommend RIGHT diagnostic mammography and ultrasound for further eval uation. Prior lumpectomy and radiation changes RIGHT breast. LEFT breast is unremarkable and unchanged. MM/[place] [id number] IMPRESSION: BI-RADS: 0-Incomplete: Need additional imaging evaluation FOLLOW UP: Need Additional Imaging Recommend RIGHT breast diagnostic mammography and ultrasound for further evalua tion.
== END 2021-08-27 08:56 | disposition home or self-care (01) ==
LOC: RADSHAW 08:59
PROVIDERS: PCP Family Medicine; Visit Provider Internal Medicine Hematology & Oncology
DX: Z85.3 Personal history of malignant neoplasm of breast (principal); R92.1 Mammographic calcification found on diagnostic imaging of breast
CPT/HCPCS: 77062

== ENCOUNTER 2021-09-16 10:36 | Outpatient (CLI) | payer MEDICARE, SELFPAY ==
--- NOTE | 2021-09-16 10:51 | MM_ITS ---
WS: [id number] RIGHT 3D TOMOSYNTHESIS DIGITAL MAMMOGRAPHY WITH CAD CLINICAL INFORMATION: HX OF BREAST CA COMPARISON: August 27, 2021 TECHNIQUE: 3 views of the right breast were obtained. FINDINGS: Scattered fibroglandular densities of the right breast. Spiculated nodule upper outer RIGHT breast po sterior depth measuring 4 mm is persistent on some views. This compresses out on the ML views. Vascul ar calcification. Ultrasound is pending. ULTRASOUND BREAST RIGHT TECHNIQUE: Ultrasound right breast focused area of concern. CLINICAL INFORMATION: HX OF BREAST CA FINDINGS: Ultrasound RIGHT breast at the 9 to 12:00 position. Dense underlying parenchymal tissue. Ill-defined shadowing dense parenchymal tissue in the area of pain. No cystic or solid lesions. No suspicious les ions to target for biopsy. No other significant findings. MM/[place] [id number] IMPRESSION: BI-RADS: 2-Benign FOLLOW UP: 1 Year Follow-up Recommend return to annual diagnostic mammography.
== END 2021-09-16 10:37 | disposition home or self-care (01) ==
PROVIDERS: PCP Family Medicine; Visit Provider Internal Medicine Medical Oncology
DX: Z85.3 Personal history of malignant neoplasm of breast (principal)
CPT/HCPCS: 76642; 77061

== ENCOUNTER 2021-12-29 15:08 | Outpatient (CLI) | payer MEDICARE, SELFPAY ==
--- NOTE | 2021-12-29 15:18 | XR_ITS ---
WS: [id number] SCREENING DEXA SCAN [employer] CLINICAL INFORMATION: MENOPAUSE COMPARISON: None. FINDINGS: The L1-L4 bone mineral density measures 1.208 g/cm2. This corresponds to a T score score of 0.2 and Z score of 0.7. Left femoral neck bone mineral density measures 0.761 g/cm2. This corresponds to a T score of -2.0 an d Z score of -1.4. Right femoral neck bone mineral density measures 0.827 g/cm2. This corresponds to a T score -1.4of an d Z score of -0.8. Mean femoral neck bone mineral density measures 0.794 g/cm2. This corresponds to a T score of -1.7 an d Z score of -1.1. XR/XR DEXA axial skeleton* [id number] IMPRESSION: Normal bone mineralization in the lumbar spine. Osteopenia in the femoral necks . Patient's FRAX calculated 10 year probability for major osteoporotic fracture i s 13.9 % and osteoporotic hip fracture is 3.5%.
== END 2021-12-29 15:09 | disposition home or self-care (01) ==
PROVIDERS: PCP Family Medicine; Visit Provider Family Medicine
DX: Z78.0 Asymptomatic menopausal state (principal)
CPT/HCPCS: 77080

== ENCOUNTER 2021-12-30 13:42 | Oncology outpatient (recurring) (ONCR) | payer MEDICARE, SELFPAY | END 2021-12-30 23:59 | disposition home or self-care (01) | PROVIDERS: PCP Family Medicine; Visit Provider Internal Medicine Hematology & Oncology | DX: C50.811 Malignant neoplasm of overlapping sites of right female breast (principal); M25.50 Pain in unspecified joint; Z79.818 Long term (current) use of other agents affecting estrogen receptors and estrogen levels; Z79.899 Other long term (current) drug therapy; Z17.0 Estrogen receptor positive status [ER+] | CPT/HCPCS: 99214 ==

== ENCOUNTER 2022-07-03 09:15 | Oncology outpatient (recurring) (ONCR) | payer MEDICARE, SELFPAY ==
[2022-07-03 09:53] LABS: Basophils # 0.1 10^3/uL (0.0-0.1); Basophils % 0.7 %; Eosinophils # 0.1 10^3/uL (0.0-0.8); Eosinophils % 0.9 %; Hematocrit 49.9 % (37.0-47.0); Hemoglobin 15.5 g/dL (11.5-15.3); Lymphocytes # 1.2 10^3/uL (0.8-4.8); Lymphocytes % 15.1 %; Mean Corpuscular HGB Conc 31.1 g/dL (30.0-36.0); Mean Corpuscular Hemoglobin 32.7 pg (28.0-34.0); Mean Corpuscular Volume 105.3 fl (81-99); Mean Platelet Volume 9.9 fL (7.4-10.4); Monocytes # 0.8 10^3/uL (0.2-0.9); Monocytes % 10.2 %; Neutrophils # 5.99 10^3/uL (1.8-7.7); Neutrophils % 72.9 %; Nucleated Red Blood Cells % 0 %; Platelet Count 301 10^3/cmm (130-400); Red Blood Count 4.74 10^6/uL (4.1-5.3); Red Cell Distribution Width 13.5 % (12.1-15.1); White Blood Count 8.2 10^3/uL (4.0-10.0)
== END 2022-07-07 23:59 | disposition home or self-care (01) ==
PROVIDERS: PCP Family Medicine; Visit Provider Internal Medicine Hematology & Oncology
DX: C50.811 Malignant neoplasm of overlapping sites of right female breast (principal); Z17.0 Estrogen receptor positive status [ER+]; Z92.3 Personal history of irradiation; M85.859 Other specified disorders of bone density and structure, unspecified thigh; M25.562 Pain in left knee
CPT/HCPCS: 36415; 85025; 99215

== ENCOUNTER 2022-11-30 08:27 | Outpatient (CLI) | payer MEDICARE, SELFPAY ==
--- NOTE | 2022-11-30 08:37 | MM_ITS ---
WS: [id number] VIEWS: MLO, CC, and ML views both breasts. 3D digital tomosynthesis is also included in this exam. Comparison made with prior exam of 10/25/2014, 06/28/2018, 08/04/2019, 08/05/2020.. Findings: There was no sign of mass, architectural distortion or suspicious calcification in either breast. Ar eas of scattered fibroglandular density MM/[place] [id number] Impression: BI-RADS: 2-Benign finding. FOLLOW-UP: 1 Year Follow-up This mammogram was also analyzed by the Computer Aided Detection System [employer].
== END 2022-11-30 08:28 | disposition home or self-care (01) ==
PROVIDERS: PCP Family Medicine; Visit Provider Internal Medicine Hematology & Oncology
DX: Z85.3 Personal history of malignant neoplasm of breast (principal)
CPT/HCPCS: 77062; G0279

== ENCOUNTER 2023-01-07 11:52 | Oncology outpatient (recurring) (ONCR) | payer MEDICARE, SELFPAY ==
[2023-01-07 13:02] LABS: Basophils # 0.1 10^3/uL (0.0-0.1); Basophils % 0.9 %; Eosinophils # 0.1 10^3/uL (0.0-0.8); Eosinophils % 1.7 %; Hematocrit 43.9 % (37.0-47.0); Hemoglobin 14.8 g/dL (11.5-15.3); Lymphocytes # 1.2 10^3/uL (0.8-4.8); Lymphocytes % 17.1 %; Mean Corpuscular HGB Conc 33.7 g/dL (30.0-36.0); Mean Corpuscular Hemoglobin 33.2 pg (28.0-34.0); Mean Corpuscular Volume 98.4 fl (81-99); Mean Platelet Volume 8.9 fL (7.4-10.4); Monocytes # 0.8 10^3/uL (0.2-0.9); Monocytes % 11.8 %; Neutrophils # 4.68 10^3/uL (1.8-7.7); Neutrophils % 68.2 %; Nucleated Red Blood Cells % 0 %; Platelet Count 314 10^3/cmm (130-400); Red Blood Count 4.46 10^6/uL (4.1-5.3); Red Cell Distribution Width 13.8 % (12.1-15.1); White Blood Count 6.9 10^3/uL (4.0-10.0)
[2023-01-07 13:29] LABS: Alanine Aminotransferase 30 U/L (0-33); Albumin Level 3.9 g/dL (3.5-5.2); Alkaline Phosphatase 72 U/L (35-105); Aspartate Amino Transferase 27 U/L (0-32); Blood Urea Nitrogen 16 mg/dL (8-23); Calcium 9.4 mg/dL (8.5-10.5); Carbon Dioxide 23 mmol/L (22-29); Chloride 105 mmol/L (98-107); Globulin 3.1 g/dL (1.3-4.6); Glomerular Filtration Rate 98.8 mL/min (90-130); Glucose 110 mg/dL (65-115); Osmolality Calculated 292 mOsm/kg (285-295); Sodium 140 mmol/L (136-145); Total Bilirubin 0.4 mg/dL (0.15-1.2)
[2023-01-07 13:53] LABS: Anion Gap 16.1 (5-19); Potassium 4.1 mmol/L (3.5-5.1)
[2023-01-07 17:19] VITALS: BP 114/77; PULSE 73; RESP 17; TEMP 36.4; O2SAT 98
== END 2023-02-04 23:59 | disposition home or self-care (01) ==
PROVIDERS: Internal Medicine Medical Oncology; PCP Family Medicine; Visit Provider Internal Medicine Hematology & Oncology
DX: C50.811 Malignant neoplasm of overlapping sites of right female breast (principal); Z17.0 Estrogen receptor positive status [ER+]; Z92.3 Personal history of irradiation; Z79.811 Long term (current) use of aromatase inhibitors
CPT/HCPCS: 36415; 80053; 85025; 99214

== ENCOUNTER 2023-12-03 09:51 | Outpatient (CLI) | payer MEDICARE, SELFPAY ==
--- NOTE | 2023-12-03 09:58 | MM_ITS ---
WS: [id number] VIEWS: MLO, CC, and ML views both breasts. 3D digital tomosynthesis is also included in this exam. Comparison made with prior exam of 05/17/2007, 05/15/2008, 10/25/2014, 08/04/2019, 08/05/2020, 08/27/2021, 11/30/2022,. Findings: There was no sign of mass, architectural distortion or suspicious calcification in either breast. Sta ble appearing nodular densities in both breasts. Benign-appearing bilateral calcifications. No new mcgregor spicious finding. There are scattered areas of fibroglandular [place] MM/[place] [id number] Impression: BI-RADS: 2-Benign finding. FOLLOW-UP: 1 Year Follow-up This mammogram was also analyzed by the Computer Aided Detection System [employer] Gr[employer].
== END 2023-12-03 09:52 | disposition home or self-care (01) ==
PROVIDERS: PCP Family Medicine; Visit Provider Family Medicine
DX: C50.919 Malignant neoplasm of unspecified site of unspecified female breast (principal); R92.333 Mammographic heterogeneous density, bilateral breasts; R92.1 Mammographic calcification found on diagnostic imaging of breast
CPT/HCPCS: 77062; G0279

== ENCOUNTER 2024-01-17 12:57 | Oncology outpatient (recurring) (ONCR) | payer MEDICARE, SELFPAY ==
[2024-01-06 15:27] LABS: Basophils % 0.6 %; Eosinophils % 0.3 %; Hematocrit 45.9 % (36-47); Lymphocytes # 1.2 10^3/uL (0.8-4.8); Lymphocytes % 17.2 %; Mean Corpuscular HGB Conc 33.8 g/dL (30-55); Mean Corpuscular Hemoglobin 32.9 pg (27-33); Mean Corpuscular Volume 97.5 fl (85-98); Mean Platelet Volume 9.2 fL (7.4-10.4); Monocytes # 0.5 10^3/uL (0.2-0.9); Monocytes % 7.6 %; Neutrophils # 5.12 10^3/uL (1.8-7.7); Neutrophils % 73.9 %; Nucleated Red Blood Cells % 0 %; Platelet Count 296 10^3/cmm (157-399); Red Blood Count 4.71 10^6/uL (3.85-5.65); Red Cell Distribution Width 13.2 % (12.1-15.1); White Blood Count 6.93 10^3/uL (3.29-11.43)
[2024-01-06 16:04] LABS: Carcinoembryonic Antigen 3.7 ng/mL (0.0-4.7)
[2024-01-07 08:59] LABS: Alanine Aminotransferase 25 U/L (0-33); Albumin Level 4.2 g/dL (3.5-5.2); Alkaline Phosphatase 78 U/L (35-105); Anion Gap 19.9 (5-19); Aspartate Amino Transferase 24 U/L (0-32); Blood Urea Nitrogen 15 mg/dL (8-23); Calcium 9.8 mg/dL (8.5-10.5); Carbon Dioxide 20 mmol/L (22-29); Chloride 104 mmol/L (98-107); Creatinine Clr Calc Pharmacy 75.0248; Globulin 3.1 g/dL (1.3-4.6); Glucose 92 mg/dL (65-115); Osmolality Calculated 288 mOsm/kg (285-295); Potassium 4.9 mmol/L (3.5-5.1); Sodium 139 mmol/L (136-145); Total Bilirubin 0.5 mg/dL (0.15-1.2); Total Protein 7.3 g/dL (6.6-8.7)
--- NOTE | 2024-01-17 13:30 | XR_ITS ---
WS: [id number] SCREENING DEXA SCAN [employer] CLINICAL INFORMATION: AI use COMPARISON: 2021 FINDINGS: S-shaped lumbar scoliosis. The L1-L4 bone mineral density measures 1.200 g/cm2. This corresponds to a T score score of 0.2 and Z score of 0.8. Left femoral neck bone mineral density measures 0.744 g/cm2. This corresponds to a T score of -2.1 an d Z score of -1.3. Right femoral neck bone mineral density measures 0.812 g/cm2. This corresponds to a T score -1.6of an d Z score of -0.7. Mean femoral neck bone mineral density measures 0.778 g/cm2. This corresponds to a T score of -1.8 an d Z score of -1.0. XR/XR DEXA axial skeleton* [id number] IMPRESSION: Normal bone mineralization lumbar spine. Osteopenia femoral necks. Patient's FRAX calculated 10 year probability for major osteoporotic fracture i s 15.9% and osteoporotic hip fracture is 4.6%. Bone mineral density lumbar spine decreased -0.7% Bone mineral density femoral necks decreased -2.0%
== END 2024-02-05 23:55 | disposition home or self-care (01) ==
LOC: RAD 12:57 → ONCMED 12:57
PROVIDERS: PCP Family Medicine; Visit Provider Nurse Practitioner Family
DX: C50.919 Malignant neoplasm of unspecified site of unspecified female breast (principal); Z79.811 Long term (current) use of aromatase inhibitors; M41.9 Scoliosis, unspecified; M85.852 Other specified disorders of bone density and structure, left thigh; M85.851 Other specified disorders of bone density and structure, right thigh
CPT/HCPCS: 36415; 77080; 80053; 82378; 85025; 99214

== ENCOUNTER 2025-01-02 08:46 | Outpatient (CLI) | payer MEDICARE, SELFPAY ==
--- NOTE | 2025-01-02 09:00 | MM_ITS ---
WS: [id number] DIAGNOSTIC BILATERAL DIGITAL BREAST TOMOSYNTHESIS MAMMOGRAPHY WITH CAD HISTORY: surveillance COMPARISON: 12/03/2023, 11/30/2022 TECHNIQUE: Bilateral craniocaudad, mediolateral oblique, and mediolateral views are submitted with tomosynthesis and SM. Computer aided detection utilized. Breast composition: There are scattered areas of fibroglandular density. Dense arterial calcifications within each breast but greater on the RIGHT. Larger dystrophic calcification in the posterior medial RIGHT breast. Mild trabecular thickening of the RIGHT breast from prior treatment. There is no suspicious grouping of calcifications. MM/MM diag BI tomosynthesis [id number] IMPRESSION: BI-RADS: 2 - Benign. FOLLOW UP: 1 Year Follow-up
== END 2025-01-02 08:47 | disposition home or self-care (01) ==
LOC: RAD 08:47
PROVIDERS: PCP Family Medicine; Visit Provider Nurse Practitioner Family
DX: C50.919 Malignant neoplasm of unspecified site of unspecified female breast (principal); R92.1 Mammographic calcification found on diagnostic imaging of breast; N64.59 Other signs and symptoms in breast
CPT/HCPCS: 77062; G0279

== ENCOUNTER 2025-01-11 10:35 | Oncology outpatient (recurring) (ONCR) | payer MEDICARE, SELFPAY | END 2025-02-04 23:59 | disposition home or self-care (01) | PROVIDERS: PCP Family Medicine; Visit Provider Internal Medicine | DX: Z08 Encounter for follow-up examination after completed treatment for malignant neoplasm (principal); Z85.3 Personal history of malignant neoplasm of breast; M85.80 Other specified disorders of bone density and structure, unspecified site | CPT/HCPCS: 99213 ==